=== PATIENT | female | born 1965 | race Caucasian/White ===

== ENCOUNTER 2019-05-27 19:47 | Emergency (ER) | payer MEDICAID ==
[~2019-05-27] VITALS: Ht 162.6 cm; Wt 59.4 kg
[2019-05-27] MEDS ORDERED: CYMBALTA20 MG PO (19:58)
[2019-05-27] MEDS ORDERED: NORVASC 2.5 MG2.5 M1 PO (19:58)
[2019-05-27] MEDS ORDERED: LISINOPRIL2.5 MG PO (19:58)
[2019-05-27 21:06] VITALS: BP 132/90
== END 2019-05-27 21:06 | disposition home or self-care (01) ==
LOC: M.ERS 19:47
DX: R09.89 Other specified symptoms and signs involving the circulatory and respiratory systems (principal); M79.672 Pain in left foot; I10 Essential (primary) hypertension; F41.9 Anxiety disorder, unspecified; F32.9 Major depressive disorder, single episode, unspecified; Z90.49 Acquired absence of other specified parts of digestive tract

== ENCOUNTER 2021-01-04 17:58 | Emergency (ER) | payer OTHER, MEDICAID ==
[~2021-01-04] VITALS: Ht 162.6 cm; Wt 62.6 kg
[~2021-01-04 17:58] MED LIST: CYMBALTA20 MG PO; LISINOPRIL2.5 MG PO; NORVASC 2.5 MG2.5 M1 PO
[2021-01-04 19:19] LABS: ABSOLUTE BASOPHILS 0.1 thou/uL (0.0-0.2); ABSOLUTE EOSINOPHILS 0.1 thou/uL (0.0-0.7); ABSOLUTE LYMPHOCYTES 2.5 thou/uL (0.8-5.3); ABSOLUTE MONOCYTES 0.6 thou/uL (0.0-1.2); ABSOLUTE NEUTROPHILS 4.4 thou/uL (1.6-8.1); BASOPHILS 0.7 %; EOSINOPHILS 0.8 %; HEMATOCRIT 40.4 % (37.0-47.0); HEMOGLOBIN 13.2 gm/dL (12.0-15.0); LYMPHOCYTES 32.8 %; MCH 25.6 pg (26.0-34.0); MCHC 32.7 g/dL (28.0-37.0); MCV 78.3 fL (80.0-100.0); MONOCYTES 8.3 %; MPV 7.1 fl. (7.2-11.1); NUCLEATED RBCS 0 /100WBC; PLATELET COUNT* 340 thou/uL (150-400); POLYS 57.4 %; RBC 5.16 mil/uL (4.20-5.00); RDW-CV 14.2 % (10.5-14.5); WBC 7.6 thou/uL (4.0-11.0)
[2021-01-04 19:29] LABS: ANION GAP 6 mmol/L (7-16); BUN 15 mg/dL (7-18); CALCIUM 8.7 mg/dL (8.5-10.1); CHLORIDE 106 mmol/L (98-107); CO2 26 mmol/L (21-32); CREATININE 0.8 mg/dL (0.6-1.3); GLUCOSE 111 mg/dL (70-99); POTASSIUM 4.1 mmol/L (3.5-5.1); SODIUM 138 mmol/L (136-145)
[2021-01-04 19:39] LABS: ALBUMIN 3.5 g/dL (3.4-5.0); ALKALINE PHOSPHATASE 86 U/L (46-116); LIPASE 83 U/L (73-393); MAGNESIUM 2.2 mg/dL (1.8-2.4); NT-PRO BRAIN NAT PEPTIDE 15 pg/mL (<300); SGOT 13 U/L (15-37); SGPT 21 U/L (30-65); TOTAL PROTEIN 7.5 g/dL (6.4-8.2)
[2021-01-04 19:40] LABS: TOTAL BILIRUBIN < 0.1 mg/dL (<0.1-1.0)
[2021-01-04 20:24] VITALS: BP 143/100
--- NOTE | 2021-01-06 13:50 | EKG ---
[place] [address] ELECTROCARDIOGRAM REPORT Name: STEPHANIE DELACRUZ Room: [facility]#: [id number] Admission: 01/04/21 Attend Phys: Discharge: 01/04/21 Date of : 61 Date of Service: 01/04/211804 Report #: [id number] THIS REPORT FOR: //name// [facility] ED Test Date: 2021-01-04 Test Time: 18:05:38 Pat Name: STEPHANIE DELACRUZ Department: Room: Gender: F Billing Coordinator: TP : 1965 Requested By: Sejal Alexandra Order Number: [id number] MD: Cristiano Arciniega Measurements Intervals [place] Rate: 84 P: 24 NH: 123 QRS: 14 QRSD: 77 T: 25 QT: 370 QTc: 438 Interpretive Statements Sinus rhythm No previous ECG available for comparison Electronically Signed On 01-06-2021 13:50:10 CDT by Cristiano Arciniega [email or web address] <ELECTRONICALLY SIGNED> By: Cristiano Arciniega MD, [facility] 01/06/21 1350 1805 1805 Cristiano Arciniega MD, FAC /EPI
== END 2021-01-04 20:25 | disposition home or self-care (01) ==
LOC: M.ERS 17:58
PROVIDERS: Emergency Medicine Emergency Medical Services
DX: F41.9 Anxiety disorder, unspecified (principal); R00.0 Tachycardia, unspecified; F32.9 Major depressive disorder, single episode, unspecified; I10 Essential (primary) hypertension; Z90.710 Acquired absence of both cervix and uterus; Z90.49 Acquired absence of other specified parts of digestive tract

== ENCOUNTER 2021-03-31 15:55 | Emergency (ER) | payer OTHER, MEDICAID ==
[~2021-03-31] VITALS: Ht 160 cm; Wt 59.9 kg
[2021-03-31 15:56] VITALS: BP 144/87
== END 2021-03-31 16:16 | disposition left against medical advice (07) ==
LOC: M.ERS 15:55
DX: H57.11 Ocular pain, right eye (principal); Z53.21 Procedure and treatment not carried out due to patient leaving prior to being seen by health care provider